=== PATIENT | female | born 1940 | race Caucasian/White ===

== ENCOUNTER 2019-12-22 13:05 | Outpatient (CLI) | payer MEDICARE, OTHER ==
--- NOTE | 2019-12-22 14:29 | MRI ---
MRI THORACIC SPINE WITHOUT CONTRAST: Date: 12/22/2019 INDICATION: Back pain in thoracic region. FINDINGS: The thoracic vertebra maintain normal height and alignment. No evidence of vertebral body edema or co mpression. There are mild to moderate degenerative changes with osteophytes and degenerative disc chaim nge. Mild disc bulge seen at several levels. Disc bulge mildly flattens the anterior thecal sac at T8 -T9, T9-T10, T10-T11, and T11-T12 levels. No cord impingement. No central canal stenosis. The thoraci c cord signal appears normal. IMPRESSION: There are mild to moderate degenerative changes of the thoracic spine. No evidence of vertebral body compression or edema. There are mild disc bulges at several levels without evidence of disc protrusio n. No cord impingement and no central canal stenosis identified. There is evidence of cord impingement in lower cervical spine, not adequately evaluated on this study . POS: SHANNA
--- NOTE | 2019-12-22 14:52 | MRI ---
MR the lumbar spine without contrast INDICATION: Acute low back pain COMPARISON: None. TECHNIQUE: Multiplanar multisequence MR images were obtained of lumbar spine without IV contrast. FINDINGS: Bone marrow: There is Modic endplate degenerative change at L3-4. There is dextroscoliosis seen at L3 -4. Distal spinal cord and conus: Normal. The conus seen to terminate at L1. Visualized retroperitoneum and paraspinal soft tissues: Normal. Vertebral levels: L5-S1: There is a broad-based bulge with facet hypertrophy inducing mild left neural foraminal narrow ing.. L4-5: There is a broad-based bulge with facet hypertrophy inducing mild central canal narrowing. No a ppreciable neural foraminal narrowing is evident. L3-4: There is a broad-based bulge with facet hypertrophy inducing moderate central canal narrowing w ith [id number] right neural foraminal narrowing. L2-3: Broad-based disc osteophyte complex and facet joint degenerative change inducing mild central c anal narrowing with [id number] left neural foraminal narrowing L1-L2: No appreciable central canal or neuroforaminal narrowing. T12-L1: No appreciable central canal or neuroforaminal narrowing. IMPRESSION: 1. Spondylosis and scoliosis inducing multilevel central canal and neural foraminal narrowing as deta iled above
--- NOTE | 2019-12-22 15:45 | BD ---
EXAM: Bone densitometry using DEXA HISTORY: 79 yo female. Screening for postmenopausal osteoporosis FINDINGS: L1--bone mineral density 1.114 g/sq cm; T score 1.1 ; Z score 3.4 L2--bone mineral density 1.231 g/sq cm; T score 1.8 ; Z score 4.4 L3--bone mineral density 1.216 g/sq cm; T score 1.2 ; Z score 3.9 L4--bone mineral density 1.282 g/sq cm; T score 2.0 ; Z score 4.7 Total L1-L4--bone mineral density 1.213 g/sq cm; T score 1.5 ; Z score 4.1 Left femoral neck--bone mineral density0.719; T score -1.2 ; Z score 1.0 Total proximal left femur--bone mineral density 0.882; T score -0.5 ; Z score 1.4 The 10 year fracture risk for a major osteoporotic fracture is 18% and for a hip fracture is 4%. IMPRESSION: Osteopenia
--- NOTE | 2019-12-22 15:53 | MMO ---
Bilateral MAMMO Bilat Screen [facility]. CLINICAL HISTORY: Patient is 79 years old and is seen for screening. The patient has no family history of breast cancer. The patient has no personal history of cancer. The patient has a history of bilateral Implants at age 39 - benign. VIEWS: The views performed were: bilateral craniocaudal; bilateral craniocaudal with tomosynthesis; bilateral mediolateral oblique; bilateral mediolateral oblique with tomosynthesis; and bilateral Implant displaced with tomosynthesis. FILMS COMPARED: The present examination has been compared to prior imaging studies performed at [facility] on 03/25/2015, 04/30/2016 and 07/23/2017. This study has been interpreted with the assistance of computer-aided detection. MAMMOGRAM FINDINGS: There are scattered fibroglandular densities. Bilateral implants are stable. There are no suspicious masses, suspicious calcifications, or new areas of architectural distortion. IMPRESSION: THERE IS NO MAMMOGRAPHIC EVIDENCE OF MALIGNANCY. A ROUTINE FOLLOW-UP MAMMOGRAM IN 1 YEAR IS RECOMMENDED. THE RESULTS OF THIS EXAM WERE SENT TO THE PATIENT. ACR BI-RADS Category 2 - Benign finding MAMMOGRAPHY NOTE: 1. A negative mammogram report should not delay a biopsy if a dominant of clinically suspicious mass is present. 2. Approximately 10% to 15% of breast cancers are not detected by mammography. 3. Adenosis and dense breasts may obscure an underlying neoplasm. Reported by: ELIAN OSPINA MD Electonically Signed: [id number]
== END 2019-12-22 13:06 | disposition home or self-care (01) ==
LOC: BICMRI 13:05
PROVIDERS: ATTEND Physician Assistant
DX: Z12.31 Encounter for screening mammogram for malignant neoplasm of breast (principal); Z13.820 Encounter for screening for osteoporosis; G24.9 Dystonia, unspecified; M54.5 Low back pain; M54.6 Pain in thoracic spine; M41.9 Scoliosis, unspecified; M47.816 Spondylosis without myelopathy or radiculopathy, lumbar region; M48.061 Spinal stenosis, lumbar region without neurogenic claudication; M48.07 Spinal stenosis, lumbosacral region; M47.814 Spondylosis without myelopathy or radiculopathy, thoracic region; M51.84 Other intervertebral disc disorders, thoracic region; M85.852 Other specified disorders of bone density and structure, left thigh; Z98.82 Breast implant status
CPT/HCPCS: 72146; 72148; 77063; 77067; 77080